=== PATIENT | male | born 1955 | race Caucasian/White ===

== ENCOUNTER 2022-12-23 11:13 | Observation (INO) ==
[~2022-12-23 11:13] MED LIST: Buffered Lidocaine 1% SYRIN 1 ml INTRADERM ONE; Lactated Ringers 1000 ml BAG 1,000 ML IV SCH; Naloxone 0.4 mg VIAL 0.4 mg/ml 1 ml VIAL IV PRN; Ondansetron 4 mg VIAL 2 MG/ML 2 ml VIAL IV PRN; fentaNYL 100 mcg/2 ml 50 MCG/ML VIAL IV PRN
[2022-12-23 12:22] LABS: ABS Lymphocytes 1.7 10^3/uL (1.0-4.8); ABS Monocytes 1.4 10^3/uL (0.0-1.1); ABS Neutrophils 8.3 10^3/uL (1.5-7.6); ABS Nucleated RBC 0.02 10^3/ul; Eosinophil % 0.4 %; Hematocrit 45.5 % (38-53); Hemoglobin 16.3 g/dL (13.2-16.3); Lymphocyte % 15.1 %; Mean Corpuscular Hemoglobin 33.4 pg (27-33); Mean Platelet Volume 7.5 fL (7.5-11.2); Nucleated Red Blood Cells % 0.2 %/100WBC (0.0-0.8); Platelet Count 262 10^3/uL (150-450); Red Blood Count 4.89 10^6/uL (4.06-5.63); Red Cell Distribution Width 12.8 % (12-17); White Blood Count 11.6 10^3/uL (3.6-10.2)
[2022-12-23 12:30] LABS: Calcium 9.5 mg/dL (8.6-10.3); Potassium 3.5 mmol/L (3.5-5.0)
[2022-12-23 12:36] LABS: Albumin/Globulin Ratio 1.2 (1-3); C Reactive Protein 249.53 mg/L (<8.01); Creatinine, Serum 1.29 mg/dL (0.67-1.17); Globulin 3.3 g/dL (2-4); Total Protein 7.3 g/dL (6.4-8.9); eGFR CKD-EPI 61.5 (>60)
[2022-12-23 14:34] LABS: Rapid COVID-19 Molecular Undetected (Undetected)
[2022-12-23] MEDS ORDERED: Vancomycin per Pharmacy 1 EA NOTE FOLLOW UP SCH (15:00)
[2022-12-23 15:02] LABS: Erythrocyte Sed Rate 87 mm/Hr (0-19)
[2022-12-23] MEDS: Cefepime 2 GM in Dextrose 2 GM/50 ML BAG IV SCH (17:33)
[2022-12-23] MEDS ORDERED: Vancomycin 1,500 MG in NS 0.9% 250 ml 250 ML IVPB ONE (18:30)
[2022-12-23] MEDS: Heparin 5000 UNITS/ML 1 mL VIAL SUBCUT SCH (23:57)
[2022-12-24] MEDS: Cefepime 2 GM in Dextrose 2 GM/50 ML BAG IV SCH (05:31)
[2022-12-24] MEDS ORDERED: Vancomycin 1000 MG in NS 0.9% 250 ML IVPB SCH ×2 (06:30→12:00)
[2022-12-24 06:33] LABS: ABS Basophils 0.1 10^3/uL (0.0-0.1); ABS Eosinophils 0.1 10^3/uL (0.0-0.5); ABS Lymphocytes 1.4 10^3/uL (1.0-4.8); ABS Monocytes 0.8 10^3/uL (0.0-1.1); ABS Neutrophils 4.2 10^3/uL (1.5-7.6); ABS Nucleated RBC 0.01 10^3/ul; Eosinophil % 1.1 %; Hemoglobin 15.2 g/dL (13.2-16.3); Lymphocyte % 21.1 %; Mean Corpuscular Hemoglobin 33.3 pg (27-33); Mean Corpuscular Hgb Conc 35.3 g/dL (31-36); Mean Corpuscular Volume 94.3 fL (80-97); Mean Platelet Volume 7.5 fL (7.5-11.2); Nucleated Red Blood Cells % 0.1 %/100WBC (0.0-0.8); Platelet Count 240 10^3/uL (150-450); Red Blood Count 4.56 10^6/uL (4.06-5.63); White Blood Count 6.7 10^3/uL (3.6-10.2)
[2022-12-24 06:54] LABS: C Reactive Protein 176.91 mg/L (<8.01)
[2022-12-24] MEDS ORDERED: Nicotine PATCH 7 MG/24 HR PATCH TRANSDERM SCH (09:00)
[2022-12-24] MEDS: Heparin 5000 UNITS/ML 1 mL VIAL SUBCUT SCH (10:00)
[2022-12-24 13:35] VITALS: BP 131/74
[2022-12-25] MEDS ORDERED: Vancomycin Trough Check NOTE FOLLOW UP ONE (11:30)
== END 2022-12-24 16:30 | disposition home or self-care (01) ==
LOC: OR 11:13 → MED 17:22 → INTOOBSV 17:22
PROVIDERS: ADMIT Orthopaedic Surgery; ATTEND Orthopaedic Surgery

== ENCOUNTER 2024-01-12 06:17 | Observation (INO) ==
[~2024-01-12 06:17] MED LIST changes: -Buffered Lidocaine 1% SYRIN 1 ml INTRADERM ONE; -Lactated Ringers 1000 ml BAG 1,000 ML IV SCH; +Lidocaine 1% w EPI 1:200,000 SDV 30 ML VIAL ONE; +NS 0.45% 1000 ml BAG 1,000 ML IV SCH; +Vancomycin 1,000 MG VIAL ONE; -fentaNYL 100 mcg/2 ml 50 MCG/ML VIAL IV PRN
[2024-01-12 07:05] LABS: Rapid COVID-19 Molecular Undetected (Undetected)
[2024-01-12] MEDS ORDERED: ceFAZolin 2 GM PREMIX 2 GM/50 ML BAG ONE (07:13)
[2024-01-12] MEDS ORDERED: Tranexamic Acid 1 GM/100ML BAG 2,000 MG/200 ML BAG IV ONE (07:13)
[2024-01-12] MEDS: Buffered Lidocaine 1% SYRIN 1 ml INTRADERM ONE (07:19)
[2024-01-12] MEDS: Lactated Ringers 1000 ml BAG 1,000 ML IV SCH ×2 (07:20→15:29)
[2024-01-12] MEDS ORDERED: fentaNYL 100 mcg/2 ml 50 MCG/ML VIAL ONE ×3 (08:18→13:59)
[2024-01-12] MEDS ORDERED: Midazolam 2 mg/2 ml VIAL 1 mg/ml 2 ml VIAL (2 mg) ONE (08:18)
[2024-01-12] MEDS ORDERED: Propofol 10 MG/ML 20 ML BTL ONE ×3 (08:18→12:19)
[2024-01-12] MEDS ORDERED: Lidocaine 2% PF 5 ML VIAL ONE (08:18)
[2024-01-12] MEDS ORDERED: Famotidine IV 10 MG/ML 2 ml VIAL (20 mg) ONE (08:21)
[2024-01-12] MEDS ORDERED: Midazolam 5 mg/5 ml VIAL 1 mg/ml 5 ml VIAL (5 mg) ONE (08:30)
[2024-01-12] MEDS: Famotidine IV 10 MG/ML 2 ml VIAL (20 mg) IV ONE (08:30)
[2024-01-12] MEDS ORDERED: ROPIVACAINE 5 MG/ML 30 ML BTL (0.5%) ONE (08:30)
[2024-01-12] MEDS ORDERED: Glycopyrrolate IV 0.2 MG/ML 1 ML VIAL ONE (10:14)
[2024-01-12] MEDS ORDERED: Sodium Chloride 0.9% 10 ML ONE (10:23)
[2024-01-12] MEDS ORDERED: Dexamethasone IV 4 MG/ML VIAL 1 ml VIAL ONE (10:38)
[2024-01-12] MEDS ORDERED: Ondansetron 4 mg VIAL 2 MG/ML 2 ml VIAL ONE (10:38)
[2024-01-12] MEDS ORDERED: Artificial Tear OPHTH.OINT 3.5 GM ONE (10:58)
[2024-01-12] MEDS ORDERED: Phenylephrine 40 mcg/mL 10mL (400mcg) SYRINGE ONE (11:47)
[2024-01-12] MEDS ORDERED: Lactulose 30 ml UDC PO PRN (13:23)
[2024-01-12] MEDS ORDERED: Morphine 2 MG/ML SYRINGE IV PRN (13:23)
[2024-01-12] MEDS ORDERED: Ondansetron ODT 4 mg TAB 4 MG TAB PO PRN (13:23)
[2024-01-12] MEDS ORDERED: Ondansetron 4 mg VIAL 2 MG/ML 2 ml VIAL IV PRN (13:23)
[2024-01-12] MEDS ORDERED: Calcium Carb (TUMS) 500 mg CHEW TAB PO PRN (13:23)
[2024-01-12] MEDS ORDERED: Magnesium Hydroxide LIQ 30 ML UDC PO PRN (13:23)
[2024-01-12] MEDS: fentaNYL 100 mcg/2 ml 50 MCG/ML VIAL IV PRN (14:00)
[2024-01-12] MEDS: Acetaminophen IV 1 GM/100ML 1,000 MG/100 ML BAG IV ONE (16:59)
[2024-01-12] MEDS: ceFAZolin 2 GM PREMIX 2 GM/50 ML BAG IV SCH (18:00)
[2024-01-12] MEDS: Magnesium Hydroxide LIQ 30 ML UDC PO SCH (21:02)
[2024-01-13 06:20] LABS: Hematocrit 40.5 % (38-53); Hemoglobin 13.9 g/dL (13.2-16.3); Mean Platelet Volume 7.5 fL (7.5-11.2); Platelet Count 272 10^3/uL (150-450)
[2024-01-13 06:45] LABS: Calcium 8.8 mg/dL (8.6-10.3); Creatinine, Serum 1.16 mg/dL (0.67-1.17); Potassium 3.9 mmol/L (3.5-5.0)
[2024-01-13] MEDS: Vitamin THERAPEUTIC TAB PO SCH (08:58)
[2024-01-13] MEDS: Aspirin EC 81 mg TAB.EC (enteric coated) PO SCH (08:58)
[2024-01-13 11:06] VITALS: BP 140/78
== END 2024-01-13 12:15 | disposition home or self-care (01) ==
LOC: OR 06:17 → SSU 06:17
PROVIDERS: ADMIT Orthopaedic Surgery; ATTEND Orthopaedic Surgery